=== PATIENT | female | born 1980 | race Caucasian/White ===

== ENCOUNTER 2017-03-09 15:42 | Emergency (ER) | payer OTHER, MEDICAID ==
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
[2017-03-09] MEDS ORDERED: ACETAMINOPHEN 325 MG TABLET PO ONE (18:24)
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
[2017-03-09 19:08] VITALS: BP 151/91
== END 2017-03-09 19:08 | disposition home or self-care (01) ==
LOC: ER 15:42
PROC: 2W3QX1Z Immobilization of Right Lower Leg using Splint (ICD-10-PCS; principal; 2017-03-09)
DX: S82.891A Other fracture of right lower leg, initial encounter for closed fracture (principal); S43.401A Unspecified sprain of right shoulder joint, initial encounter; M54.2 Cervicalgia; V43.52XA Car driver injured in collision with other type car in traffic accident, initial encounter; Z90.49 Acquired absence of other specified parts of digestive tract; Z90.710 Acquired absence of both cervix and uterus
CPT/HCPCS: 71020; 72040; 99283

== ENCOUNTER 2018-08-26 21:33 | Emergency (ER) | payer MEDICAID ==
[2018-08-26] MEDS ORDERED: AZITHROMYCIN 250 MG TABLET PO ONE (22:53)
[2018-08-26] MEDS ORDERED: ALBUTEROL SULFATE HFA (90 MCG/PUFF) 8 GM MDI (1 MDI/ER DISP) IH PRN (22:53)
[2018-08-26] MEDS ORDERED: PREDNISONE 20 MG TABLET PO ONE (22:54)
--- NOTE | 2018-08-26 22:59 | ER Document Report ---
ED General - General Chief Complaint: Cough Stated Complaint: COUGH Time Seen by Provider: 08/26/18 22:47 Mode of Arrival: Ambulatory Information source: Patient TRAVEL OUTSIDE OF THE [place] IN LAST 30 DAYS: No - HPI Patient complains to provider of: Nasal and sinus congestion, cough, sore ribs Onset: Other - Last 2 to 3 weeks Onset/Duration: Sudden Quality of pain: Sharp Severity: Moderate Pain Level: 2 Associated symptoms: None Exacerbated by: Denies Relieved by: Denies Similar symptoms previously: No Recently seen / treated by doctor: No Notes: 38-year-old female with sinus congestion and a horrible cough for the last couple of weeks. She is got yellow mucus and reported fever. She is not a smoker - Related Data Allergies/Adverse Reactions: No Known Allergies Allergy (Unverified 03/09/17 15:49) Past Medical History - General Information source: Patient - Social History Smoking Status: Never Smoker Family History: Reviewed & Not Pertinent - Past Medical History Cardiac Medical History: Denies: Hx Coronary Artery Disease, Hx Heart Attack, Hx Hypertension Pulmonary Medical History: Denies: Hx Asthma, Hx Bronchitis, Hx COPD, Hx Pneumonia Neurological Medical History: Denies: Hx Cerebrovascular Accident, Hx Seizures Renal/ Medical History: Denies: Hx Peritoneal Dialysis Musculoskeletal Medical History: Denies Hx Arthritis Past Surgical History: Reports: Hx Section, Hx Cholecystectomy, Hx Hysterectomy - Immunizations Hx Diphtheria, Pertussis, Tetanus Vaccination: Yes Review of Systems - Review of Systems Notes: Constitutional: No fevers. No chills. EENT: No eye redness. No eye pain. No ear pain. No sore throat. Positive for sinus and nasal congestion, positive for rhinorrhea Cardiovascular: No chest pain. No palpitations. Respiratory: Positive for productive cough, positive for chest wall pain Gastrointestinal: No abdominal pain. No nausea, vomiting, or diarrhea. Genitourinary: Atraumatic. No lesions. No pain. No discharge. Musculoskeletal: Atraumatic. No swelling. No deformities. Skin: No rash or lesions. Lymphatic: No swollen lymph nodes. Neurologic: No headache. No syncope. Psychiatric: No suicidal or homicidal ideation. Physical Exam - Vital signs Vitals: Temp Pulse Resp BP Pulse Ox 98.2 F 76 20 128/79 H 97 08/26/18 22:17 08/26/18 22:17 08/26/18 22:17 08/26/18 22:17 08/26/18 22:17 - Notes Notes: General: Well-developed, well-nourished. In no acute distress. Non-toxic appearing. Cardiac: Well-perfused. Regular rate and rhythm. No murmurs, rubs, or gallops. Pulmonary: Slightly diminished Abdominal: Non-distended. Non-rigid. Bowels sounds are present in all four quadrants. No guarding or rebound. HEENT: Head is atraumatic. Conjunctivae not reddened. No tearing. PERRL. EOMI. Orbits atraumatic. No periorbital swelling or erythema. Oropharynx is without erythema, swelling, or exudates. Neck: Supple. No adenopathy. No meningismus. Dermatologic: Warm with good turgor. No rash. Atraumatic. Chest: Atraumatic. No chest wall tenderness to palpation. Musculoskeletal: Moves all extremities well. No range of motion deficits. no muscular or joint tenderness. No paraspinal muscle tenderness. no midline spinal tenderness or step-off. Genitourinary: Examination deferred Neurologic: No gross neurologic deficits. Psychiatric: Normal mood. Course - Vital Signs Vital signs: Temp Pulse Resp BP Pulse Ox 98.2 F 76 20 128/79 H 97 08/26/18 22:17 08/26/18 22:17 08/26/18 22:17 08/26/18 22:17 08/26/18 22:17 Discharge - Discharge Clinical Impression: Upper respiratory infection Qualifiers: URI type: unspecified URI Qualified Code(s): J06.9 - Acute upper respiratory infection, unspecified Condition: Good Disposition: HOME, SELF-CARE Instructions: Upper Respiratory Illness ([facility]) Additional Instructions: Be sure to take all medications as directed until complete. Your cough syrup is only as needed for severe intractable cough. You received an inhaler here and you are to take 2 puffs of that inhaler every 4 hours [id number] as needed for cough and chest congestion. For sinus and head congestion, you can purchase nasal steroid like Nasacort [id number] and follow as directed. Prescriptions: Hydrocodone Bit/Homatropine [Hycodan Syrup 5-1.5 mg/5 ml Ud Cup] 5 ml PO Q6HP PRN #120 ml PRN Reason: Azithromycin [Zithromax] 250 mg PO DAILY 4 Days #4 tablet Prednisone 50 mg PO DAILY 5 Days #5 tablet Referrals: [facility] [Provider Group] - Follow up as needed
[2018-08-26 23:16] VITALS: BP 126/72
== END 2018-08-26 23:16 | disposition home or self-care (01) ==
LOC: ER 21:33
DX: J06.9 Acute upper respiratory infection, unspecified (principal); R07.81 Pleurodynia; R50.9 Fever, unspecified; Z90.49 Acquired absence of other specified parts of digestive tract; Z90.710 Acquired absence of both cervix and uterus
CPT/HCPCS: 99283; Q0144; J7512; J3490